=== PATIENT | female | born 2000 | race Hispanic/Latino ===

== ENCOUNTER 2022-03-19 22:03 | Day surgery (SDC) | payer OTHER, SELFPAY ==
[2022-03-19 22:26] VITALS: BMI 31.8
[2022-03-19] MEDS ORDERED: hydrALAZINE 20 MG/ML VIAL SLOW IVP PRN (22:54)
[2022-03-20] MEDS ORDERED: Acetaminophen 500 MG TAB PO SCH (00:30)
== END 2022-03-20 03:40 | disposition home or self-care (01) ==
LOC: CSHLD/OP 22:03
PROVIDERS: ATTEND Student in an Organized Health Care Education/Training Program
DX: O47.1 False labor at or after 37 completed weeks of gestation (principal); O99.891 Other specified diseases and conditions complicating pregnancy; R51.9 Headache, unspecified; O99.013 Anemia complicating pregnancy, third trimester; D64.9 Anemia, unspecified; O09.33 Supervision of pregnancy with insufficient antenatal care, third trimester; Z3A.39 39 weeks gestation of pregnancy; Z79.899 Other long term (current) drug therapy
CPT/HCPCS: 76815; 99283

== ENCOUNTER 2022-03-24 16:38 | Day surgery (SDC) | payer OTHER, SELFPAY ==
[2022-03-24 17:22] VITALS: BMI 31.8
[2022-03-24] MEDS ORDERED: hydrALAZINE 20 MG/ML VIAL SLOW IVP PRN (19:10)
[2022-03-24] MEDS ORDERED: Acetaminophen 500 MG TAB PO SCH (20:00)
[2022-03-24] MEDS ORDERED: Lactated Ringer's 1,000 ML IV SCH ×2 (22:15)
[2022-03-24] MEDS ORDERED: Methocarbamol 500 MG TAB PO SCH (22:15)
[2022-03-24] MEDS ORDERED: Metoclopramide HCl 10 MG TAB PO SCH (22:15)
== END 2022-03-25 00:50 | disposition home or self-care (01) ==
LOC: CSHLD/OP 16:38
PROVIDERS: ATTEND Student in an Organized Health Care Education/Training Program
DX: O47.1 False labor at or after 37 completed weeks of gestation (principal); O99.891 Other specified diseases and conditions complicating pregnancy; R51.9 Headache, unspecified; Z79.899 Other long term (current) drug therapy; Z3A.40 40 weeks gestation of pregnancy
CPT/HCPCS: 96360; 96361; 99284

== ENCOUNTER 2022-03-25 19:00 | Inpatient (IN) | payer MEDICAID, SELFPAY ==
[2022-03-25] MEDS ORDERED: hydrALAZINE 20 MG/ML VIAL SLOW IVP PRN (22:14)
[2022-03-25] MEDS ORDERED: Diphenoxylate HCl/Atropine Tablet PO PRN (22:14)
[2022-03-25] MEDS ORDERED: Carboprost 250 MCG/ML AMP IM PRN (22:14)
[2022-03-25] MEDS ORDERED: Promethazine HCl 25 MG/ML VIAL IM PRN (22:14)
[2022-03-25] MEDS ORDERED: Lidocaine 1% (PF) 30 ML VIAL SC PRN (22:14)
[2022-03-25] MEDS ORDERED: Ibuprofen 800 MG TAB PO PRN (22:14)
[2022-03-25] MEDS ORDERED: Misoprostol 200 MCG TAB PR PRN (22:14)
[2022-03-25] MEDS ORDERED: Methylergonovine 0.2 MG/ML VIAL IM PRN (22:14)
[2022-03-25] MEDS ORDERED: Ondansetron PF 4 MG/2 ML Vial IVP PRN (22:14)
[2022-03-25] MEDS ORDERED: Misoprostol 100 MCG TAB VAG SCH (22:15)
[2022-03-25] MEDS ORDERED: NS w/ Oxytocin 30 units 500 ML IV SCH ×2 (22:15)
[2022-03-26 02:28] VITALS: BMI 31.8
[2022-03-26] MEDS: Misoprostol 100 MCG TAB VAG SCH ×4 (03:59→17:28)
[2022-03-26] MEDS: Lactated Ringer's 1,000 ML IV SCH ×2 (03:59→04:59)
[2022-03-26 05:15] LABS: Hemoglobin 10.6 g/dL (12.0-15.5); Mean Corpuscular HGB CONC 33.5 g/dL (32.0-36.0); Mean Corpuscular Hemoglobin 29.1 pg (27.0-33.0); Mean Corpuscular Volume 86.8 fl (81.6-98.3); Mean Platelet Volume 10.8 fl (7.4-10.4); Platelet Count 197 10x3/uL (150-450); RBC Distribution Width 13.5 % (11.5-14.5); Red Blood Cell (RBC) Count 3.64 10x6/uL (3.90-5.03); White Blood Cell (WBC) Count 9.2 10x3/uL (3.5-10.5)
[2022-03-26 05:53] LABS: Hep B Surf Ag Non-Reactive S/CO (NonReactive); Syphilis Antibody Nonreactive (Nonreactive); Syphilis Antibody Index 0.05 S/CO (<1.00 Non-Reactive)
[2022-03-26 05:59] LABS: SARS-CoV-2 NAA Rapid Test Not Detected (NotDetected)
[2022-03-26] MEDS: Acetaminophen 500 MG TAB PO PRN (13:31)
[2022-03-27] MEDS: Misoprostol 100 MCG TAB VAG SCH ×2 (01:46→01:47)
[2022-03-27] MEDS: Lactated Ringer's 1,000 ML IV SCH (01:47)
[2022-03-27] MEDS: Butorphanol Tartrate 1 MG/ML VIAL SLOW IVP PRN ×3 (02:07→13:03)
[2022-03-27] MEDS: Acetaminophen 500 MG TAB PO PRN (10:52)
[2022-03-27] MEDS ORDERED: Fentanyl 2 mcg/Bup 0.1% Cadd 100 ML ONE (15:33)
[2022-03-27] MEDS ORDERED: Bupivacaine 0.25% HCL 30 ML VIAL ONE ×4 (15:36→15:49)
[2022-03-27] MEDS ORDERED: diphenhydrAMINE 50 MG/ML VIAL IVP PRN (16:17)
[2022-03-27] MEDS ORDERED: Ondansetron PF 4 MG/2 ML Vial IVP PRN (16:17)
[2022-03-27] MEDS ORDERED: Promethazine HCl 25 MG/ML VIAL IM PRN (16:17)
[2022-03-27] MEDS ORDERED: Naloxone HCl 0.4 mg/ml Vial IVP PRN ×2 (16:17)
[2022-03-27] MEDS ORDERED: ePHEDrine Sulfate 50 MG/10 ML VIAL SLOW IVP PRN (16:17)
[2022-03-27] MEDS ORDERED: Moisturizing Cream (Eucerin) 113 GM JAR TOP PRN (16:17)
[2022-03-27] MEDS ORDERED: Lactated Ringer's 500 ML IV PRN (16:29)
[2022-03-27] MEDS ORDERED: Fentanyl 2 mcg/Bupivacaine 0.1% Cassette 100 ML EPIDURAL SCH (16:30)
[2022-03-27] MEDS ORDERED: Communication Order-Pharmacy FS SCH (16:30)
[2022-03-27] MEDS ORDERED: Ampicillin 2 GM VIAL ONE (19:38)
[2022-03-27] MEDS: Acetaminophen 325 MG TAB PO PRN (19:45)
[2022-03-27] MEDS: Gentamicin 280 MG, Admixture Fee 1 EACH in Sodium Chloride 0.9% 100 ML IVPB SCH (21:07)
[2022-03-28] MEDS ORDERED: Lidocaine 1% (PF) 30 ML VIAL ONE (00:47)
[2022-03-28] MEDS ORDERED: Misoprostol 200 MCG TAB ONE (00:48)
[2022-03-28] MEDS ORDERED: Carboprost 250 MCG/ML AMP ONE (00:48)
[2022-03-28] MEDS: Ampicillin 2 GM in Sodium Chloride 0.9% 100 ML IVPB SCH ×5 (02:34→19:46)
[2022-03-28] MEDS ORDERED: Boostrix 0.5 ML (Tdap) VIAL (>/=7 yrs of age) IM ONE (06:07)
[2022-03-28] MEDS ORDERED: NS w/ Oxytocin 30 units 500 ML IV SCH (06:07)
[2022-03-28] MEDS ORDERED: Milk Of Magnesia 30 ML UDCUP PO PRN (06:07)
[2022-03-28] MEDS ORDERED: Lanolin Ointment 7 GM TUBE TOP PRN (06:07)
[2022-03-28] MEDS ORDERED: diphenhydrAMINE 25 MG CAP PO PRN (06:07)
[2022-03-28] MEDS ORDERED: Methylergonovine 0.2 MG/ML VIAL IM PRN (06:07)
[2022-03-28] MEDS ORDERED: Ondansetron PF 4 MG/2 ML Vial IVP PRN (06:07)
[2022-03-28] MEDS ORDERED: Benzocaine-Menthol 82.5 ML CAN TOP PRN (06:07)
[2022-03-28] MEDS ORDERED: Misoprostol 200 MCG TAB VAG PRN (06:07)
[2022-03-28] MEDS ORDERED: Preparation H Ointment 28 GM TUBE PR PRN (06:07)
[2022-03-28] MEDS ORDERED: Bisacodyl 10 MG SUPP PR PRN (06:07)
[2022-03-28] MEDS ORDERED: hydrALAZINE 20 MG/ML VIAL SLOW IVP PRN (06:07)
[2022-03-28] MEDS ORDERED: Ibuprofen 800 MG TAB PO SCH (06:30)
[2022-03-28] MEDS: Misoprostol 100 MCG TAB VAG SCH ×2 (07:23→07:24)
[2022-03-28] MEDS: Lactated Ringer's 1,000 ML IV SCH (07:24)
[2022-03-28] MEDS: Ferrous Sulfate 325 MG TAB PO SCH ×2 (07:26→14:33)
[2022-03-28] MEDS: Prenatal Vitamin 1 TAB PO SCH (08:51)
[2022-03-28] MEDS: Docusate 100 MG CAP PO SCH ×2 (08:51→21:44)
[2022-03-28] MEDS: Ibuprofen 800 MG TAB PO SCH ×3 (09:02→21:43)
[2022-03-28] MEDS: Gentamicin 280 MG, Admixture Fee 1 EACH in Sodium Chloride 0.9% 100 ML IVPB SCH (21:43)
[2022-03-29] MEDS: Ampicillin 2 GM in Sodium Chloride 0.9% 100 ML IVPB SCH ×2 (02:04→03:30)
[2022-03-29 04:18] LABS: #Eosinphils 0.1 10x3/uL (0.0-0.5); #Monocytes 0.9 10x3/uL (0.0-1.1); #Neutrophils 9.8 10x3/uL (1.5-8.4); %Basophils 0.2 % (0.0-2.0); %Eosinophils 0.5 % (0.0-6.0); %Lymphocytes 17.4 % (18.0-47.0); %Monocytes 7.1 % (0.0-10.0); %Neutrophils 74.3 % (40.0-75.0); Hemoglobin 8.9 g/dL (12.0-15.5); Mean Corpuscular HGB CONC 32.5 g/dL (32.0-36.0); Mean Corpuscular Hemoglobin 28.6 pg (27.0-33.0); Mean Corpuscular Volume 88.1 fl (81.6-98.3); Mean Platelet Volume 11.1 fl (7.4-10.4); Platelet Count 138 10x3/uL (150-450); RBC Distribution Width 13.9 % (11.5-14.5); Red Blood Cell (RBC) Count 3.11 10x6/uL (3.90-5.03); White Blood Cell (WBC) Count 13.1 10x3/uL (3.5-10.5)
[2022-03-29 04:37] LABS: ALT (SGPT) 9 U/L (8-55); AST (SGOT) 19 U/L (5-34); Albumin 2.6 g/dL (3.5-5.0); Alkaline Phosphatase 108 U/L (40-110); Anion Gap 12 mmol/L (10-20); BUN (Urea Nitrogen) 12 mg/dL (7.0-18.7); Bilirubin, Total 0.2 mg/dL (0.2-1.2); Calc. Creatinine Clearance 134 mL/min (70-130); Calcium 8.1 mg/dL (7.8-10.44); Carbon Dioxide 23 mmol/L (22-29); Chloride 109 mmol/L (98-107); Estimated GFR 116; Globulin 2.2 g/dL (2.4-3.5); Glucose 89 mg/dL (70-105); Potassium 3.6 mmol/L (3.5-5.1); Protein, Total 4.8 g/dL (6.0-8.3); Sodium 140 mmol/L (136-145)
[2022-03-29] MEDS: Ibuprofen 800 MG TAB PO SCH ×3 (05:07→21:43)
[2022-03-29] MEDS: Prenatal Vitamin 1 TAB PO SCH (08:17)
[2022-03-29] MEDS: Ferrous Sulfate 325 MG TAB PO SCH ×2 (08:17→16:05)
[2022-03-29] MEDS: Docusate 100 MG CAP PO SCH ×2 (08:17→21:42)
[2022-03-29] MEDS: Acetaminophen 325 MG TAB PO PRN (08:19)
[2022-03-29] MEDS ORDERED: Polyethylene Glycol 3350 17 GM Packet PO SCH (09:00)
[2022-03-29] MEDS ORDERED: HYDROcodone/Acetaminophen 5/325 mg Tablet PO PRN (15:50)
[2022-03-29] MEDS: Polyethylene Glycol 3350 17 GM Packet PO SCH (21:42)
[2022-03-29] MEDS: Gentamicin 280 MG, Admixture Fee 1 EACH in Sodium Chloride 0.9% 100 ML IVPB SCH (21:42)
[2022-03-30] MEDS: Ibuprofen 800 MG TAB PO SCH ×2 (05:07→14:11)
[2022-03-30 05:08] LABS: #Eosinphils 0.1 10x3/uL (0.0-0.5); #Monocytes 0.6 10x3/uL (0.0-1.1); #Neutrophils 5.5 10x3/uL (1.5-8.4); %Basophils 0.4 % (0.0-2.0); %Eosinophils 1.3 % (0.0-6.0); %Lymphocytes 25.9 % (18.0-47.0); %Monocytes 7.2 % (0.0-10.0); %Neutrophils 64.6 % (40.0-75.0); Hemoglobin 8.7 g/dL (12.0-15.5); Mean Corpuscular HGB CONC 33.3 g/dL (32.0-36.0); Mean Corpuscular Hemoglobin 29.2 pg (27.0-33.0); Mean Corpuscular Volume 87.6 fl (81.6-98.3); Mean Platelet Volume 11.5 fl (7.4-10.4); Platelet Count 134 10x3/uL (150-450); RBC Distribution Width 13.8 % (11.5-14.5); Red Blood Cell (RBC) Count 2.98 10x6/uL (3.90-5.03); White Blood Cell (WBC) Count 8.5 10x3/uL (3.5-10.5)
[2022-03-30 05:14] LABS: ALT (SGPT) 9 U/L (8-55); AST (SGOT) 15 U/L (5-34); Albumin 2.7 g/dL (3.5-5.0); Alkaline Phosphatase 101 U/L (40-110); Anion Gap 16 mmol/L (10-20); BUN (Urea Nitrogen) 12 mg/dL (7.0-18.7); Bilirubin, Total 0.1 mg/dL (0.2-1.2); Calc. Creatinine Clearance 157 mL/min (70-130); Calcium 8.6 mg/dL (7.8-10.44); Carbon Dioxide 22 mmol/L (22-29); Chloride 106 mmol/L (98-107); Estimated GFR 129; Globulin 2.2 g/dL (2.4-3.5); Glucose 91 mg/dL (70-105); Potassium 3.9 mmol/L (3.5-5.1); Protein, Total 4.9 g/dL (6.0-8.3); Sodium 140 mmol/L (136-145)
[2022-03-30 07:38] VITALS: BP 116/62; TEMP 97.8
[2022-03-30] MEDS: Ferrous Sulfate 325 MG TAB PO SCH (08:31)
[2022-03-30] MEDS: Prenatal Vitamin 1 TAB PO SCH (08:31)
[2022-03-30] MEDS: Docusate 100 MG CAP PO SCH (08:31)
[2022-03-30] MEDS: Polyethylene Glycol 3350 17 GM Packet PO SCH (08:34)
== END 2022-03-30 17:35 | disposition home or self-care (01) | DRG 768 ==
LOC: CSHLD 20:05 → CSHPP 03-28 05:46 → CSHLD 03-28 05:46 → UNDODISIN 03-29 15:10 → CSHPP 03-29 17:05
PROVIDERS: ADMIT Obstetrics & Gynecology; ATTEND Obstetrics & Gynecology
PROC: 3E0P7VZ Introduction of Hormone into Female Reproductive, Via Natural or Artificial Opening (ICD-10-PCS; 2022-03-25)
PROC: 0U7C7ZZ Dilation of Cervix, Via Natural or Artificial Opening (ICD-10-PCS; 2022-03-25)
PROC: 10907ZC Drainage of Amniotic Fluid, Therapeutic from Products of Conception, Via Natural or Artificial Opening (ICD-10-PCS; 2022-03-27)
PROC: 10H07YZ Insertion of Other Device into Products of Conception, Via Natural or Artificial Opening (ICD-10-PCS; 2022-03-27)
PROC: 10E0XZZ Delivery of Products of Conception, External Approach (ICD-10-PCS; principal; 2022-03-28)
PROC: 0DQR0ZZ Repair Anal Sphincter, Open Approach (ICD-10-PCS; 2022-03-28)
DX: O70.20 Third degree perineal laceration during delivery, unspecified (principal); Z37.0 Single live birth; O75.2 Pyrexia during labor, not elsewhere classified; Z3A.40 40 weeks gestation of pregnancy; Z20.822 Contact with and (suspected) exposure to COVID-19; O76 Abnormality in fetal heart rate and rhythm complicating labor and delivery; D64.9 Anemia, unspecified; O90.81 Anemia of the puerperium
CPT/HCPCS: 36415; 51702; 80053; 85025; 85027; 86780; 86850; 86900; 86901; 87340; 88307; J0290; J0595; J1580; J2405; J3490; J7120; S0020; U0002